=== PATIENT | female | born 1985 | race Caucasian/White ===

== ENCOUNTER → 2016-12-17 | Outpatient (CLI) | payer OTHER ==
[~2016-12-17] MED LIST: BCPILLS PO; CEPH500C2 PO; CHOL1000 PO; DIPH25CA65 PO; EPP3/2 IM; FEXO1TAB49 PO; FLUT0.15 NAE; HYDR-5688 PO; MISCCAP80 PO; SULF800T23 PO; TRAV0.00 OP; [UNRECOGNIZED DRUG - OTHER] PO; [UNRECOGNIZED DRUG - OTHER] PO
[2016-12-17 17:27] LABS: BASO % 0.3 %; BASO ABS # 0.02 K/uL (0-0.2); COMPLETE YES; EOS % 2.9 %; HEMATOCRIT 39.6 % (37-47); IG% 0.2 %; LYMPH ABS # 1.16 K/uL (1.2-3.4); MEAN CELL VOLUME 90.2 fL (80-100); MEAN CORPUSCULAR HEMOGLOBIN 30.5 pg (25-34); MEAN CORPUSCULAR HGB CONC 33.8 g/dl (32-36); MEAN PLATELET VOLUME 11.5 fL (7.4-10.4); MONO % 8.4 %; NEUT % 68.2 %; PLATELET COUNT 267 K/uL (130-400); RED BLOOD COUNT 4.39 M/uL (4.2-5.4); WHITE BLOOD COUNT 5.81 K/uL (4.8-10.8)
[2016-12-17 18:02] LABS: BLOOD UREA NITROGEN 9 mg/dl (7-18); BUN/CREATININE RATIO 11.1 (10-20); CALCIUM 8.5 mg/dl (8.5-10.1); CARBON DIOXIDE 25 mmol/L (21-32); CHLORIDE 106 mmol/L (98-107); CREATININE 0.83 mg/dl (0.60-1.20); GLUCOSE 74 mg/dl (70-99); POTASSIUM 3.9 mmol/L (3.5-5.1); SODIUM 140 mmol/L (136-145)
== END | disposition home or self-care (01) ==
LOC: C.LABBFT 12:47
PROVIDERS: ATTEND Family Medicine
DX: L65.9 Nonscarring hair loss, unspecified (principal)

== ENCOUNTER → 2016-12-19 | Outpatient (CLI) | payer OTHER | END | disposition home or self-care (01) | LOC: C.LABSPEC 12:33 | PROVIDERS: ATTEND Family Medicine | DX: R19.7 Diarrhea, unspecified (principal) ==

== ENCOUNTER → 2017-08-08 | Outpatient (CLI) | payer OTHER ==
[2017-08-08 12:31] LABS: BASO % 0.4 %; BASO ABS # 0.03 K/uL (0-0.2); COMPLETE YES; EOS % 5.1 %; HEMATOCRIT 42.1 % (37-47); IG% 0.1 %; LYMPH % 29.1 %; LYMPH ABS # 1.95 K/uL (1.2-3.4); MEAN CELL VOLUME 92.1 fL (80-100); MEAN CORPUSCULAR HEMOGLOBIN 31.5 pg (25-34); MEAN CORPUSCULAR HGB CONC 34.2 g/dl (32-36); MEAN PLATELET VOLUME 11.2 fL (7.4-10.4); MONO % 9.7 %; NEUT % 55.6 %; PLATELET COUNT 300 K/uL (130-400); RED BLOOD COUNT 4.57 M/uL (4.2-5.4); WHITE BLOOD COUNT 6.69 K/uL (4.8-10.8)
[2017-08-08 12:57] LABS: BLOOD UREA NITROGEN 13 mg/dl (7-18); BUN/CREATININE RATIO 15.4 (10-20); CALCIUM 9.5 mg/dl (8.5-10.1); CARBON DIOXIDE 26 mmol/L (21-32); CHLORIDE 105 mmol/L (98-107); CREATININE 0.82 mg/dl (0.60-1.20); GLUCOSE 90 mg/dl (70-99); POTASSIUM 4.3 mmol/L (3.5-5.1); SODIUM 137 mmol/L (136-145)
== END | disposition home or self-care (01) ==
LOC: C.LABBFT 09:33
PROVIDERS: ATTEND Internal Medicine
DX: Z01.812 Encounter for preprocedural laboratory examination (principal); L05.91 Pilonidal cyst without abscess

== ENCOUNTER 2017-08-14 04:55 | Observation (INO) | payer OTHER ==
[2017-08-08 08:03] VITALS: BMI 36.0
[2017-08-14] VITALS (10 sets, daily range): BP systolic 105–129; BP diastolic 62–83; PULSE 61–77; TEMP 36.6–37; O2SAT 95–97; Ht 177.8 cm; Wt 115.0 kg
[~2017-08-14] VITALS: Ht 177.8 cm; Wt 115.0 kg
[~2017-08-14 04:55] MED LIST changes: -CEPH500C2 PO; -HYDR-5688 PO; -SULF800T23 PO
[2017-08-14] MEDS ORDERED: LACTATED RINGER'S 1000ML 1,000 ML IV SCH (06:00)
[2017-08-14] MEDS ORDERED: CEFAZOLIN 2000 MG/60 ML D5W IV SCH (06:00)
[2017-08-14] MEDS ORDERED: LIDOCAINE HCL 2% 2 ML VIAL (20MG/ML) ONE ×2 (06:07)
[2017-08-14] MEDS ORDERED: PROPOFOL IV EMULSION 10 MG/ML 20 ML VIAL IV ONE ×2 (06:12→07:45)
[2017-08-14] MEDS ORDERED: FENTANYL CITRATE INJ 50 MCG/1 ML 2 ML VIAL ONE (06:13)
[2017-08-14] MEDS ORDERED: MIDAZOLAM HCL 1 MG/ML 2ML VIAL ONE (06:13)
[2017-08-14] MEDS ORDERED: BUPIVACAINE 0.5 % 5 MG/1 ML MPF 30ML VIAL ONE (06:34)
[2017-08-14] MEDS ORDERED: DEXAMETHASONE SOD INJ 4 MG/ML VIAL IV PRN (06:45)
[2017-08-14] MEDS ORDERED: EpHEDrine SULFATE INJ 50 MG/ML AMP IV PRN (06:45)
[2017-08-14] MEDS ORDERED: ACETAMINOPHEN 1000 MG/100 ML IV IV SCH (06:45)
[2017-08-14] MEDS ORDERED: ATROPINE SULFATE 0.1 MG/ML 5ML SYR IV PRN (06:45)
[2017-08-14] MEDS ORDERED: HYDROmorphone INJ 1 MG/ML SYR IV PRN (06:45)
[2017-08-14] MEDS ORDERED: PROMETHAZINE HCL INJ 12.5 MG in SODIUM CHLORIDE 0.9% 50ML 50 ML IV PRN ×2 (06:45→10:15)
[2017-08-14] MEDS ORDERED: PHENYLEPHRINE 100MCG/ML 5ML SYR IV PRN (06:45)
[2017-08-14] MEDS ORDERED: ONDANSETRON INJ 2 MG/ML 2 ML VIAL IV PRN ×2 (06:45→08:00)
[2017-08-14] MEDS ORDERED: FENTANYL CITRATE INJ 50 MCG/1 ML 2 ML VIAL IV PRN (06:45)
--- NOTE | 2017-08-14 06:52 | History & Physical Bridge Note ---
H&P Re-Evaluation Bridge Note: I have examined the patient, reviewed the History & Physical and in the interval since the performance of the History & Physical I have noted the following changes of clinical significance: No changes noted
[2017-08-14] MEDS ORDERED: ONDANSETRON INJ 2 MG/ML 2 ML VIAL ONE (07:28)
[2017-08-14] MEDS ORDERED: ROCURONIUM BROMIDE 10 MG/ML 5 ML VIAL IV ONE (07:28)
[2017-08-14] MEDS ORDERED: SUCCINYLCHOLINE CHLORIDE 20 MG/ML 10 ML VIAL IV ONE (07:28)
[2017-08-14] MEDS ORDERED: DEXAMETHASONE SOD INJ 4 MG/ML VIAL ONE (07:28)
[2017-08-14] MEDS ORDERED: HYDROmorphone INJ 2 MG/ML SYR/VIAL ONE (07:30)
[2017-08-14] MEDS ORDERED: NEOSTIGMINE METHYLSULFATE 5 MG/5 ML SYR ONE (07:51)
[2017-08-14] MEDS ORDERED: GLYCOPYRROLATE INJ 0.2 MG/ML VIAL ONE (07:51)
--- NOTE | 2017-08-14 07:59 | [facility] Operative Report ---
Operative Report Operative Date Aug 14, 2017. Pre-Operative Diagnosis Pilonidal Cyst Post-Operative Diagnosis Pilonidal Cyst Procedure(s) Performed Excision / Drainage of Pilonidal Cyst Surgeon Dr Bliss [employer] Brake Technician Surgeon(s) Sam Jackson PA-C Findings approx 3 cm sinus tract w/ site of prior drainage Anesthesia gen Complication(s) None Disposition Recovery Room / PACU I attest to the content of the Intraoperative Record and any orders documented therein. Any exceptions are noted below.
[2017-08-14] MEDS ORDERED: MoRPHine SULFATE 4 MG/ML 1 ML CARP\\VIAL IV PRN (08:00)
[2017-08-14] MEDS ORDERED: HYDROCODONE/ACETAMOPHEN 5/325MG TAB PO PRN ×2 (08:00)
[2017-08-14] MEDS ORDERED: PROMETHAZINE HCL INJ 25 MG in SODIUM CHLORIDE 0.9% 50ML 50 ML IV PRN (08:00)
[2017-08-14] MEDS ORDERED: MoRPHine SULFATE 2 MG/ML CARP IV PRN (08:00)
[2017-08-14] MEDS ORDERED: IV FLUIDS COMPLETED PRN (08:30)
--- NOTE | 2017-08-14 08:48 | Anesthesiology Progress Note ---
Anesthesia Post Op Note Date & Time Aug 14, 2017 at 08:48 Vital Signs Pain Intensity: 0 Vital Signs Past 12 Hours Date Time Temp Pulse Resp B/P (MAP) Pulse Ox O2 Delivery O2 Flow Rate FiO2 08/14/17 08:35 76 16 130/60 99 Oxymask 5 08/14/17 08:25 77 16 128/69 99 Oxymask 5 08/14/17 08:16 36.0 84 16 146/73 98 Oxymask 10 08/14/17 05:35 36.9 70 18 129/75 (93) 97 Room Air Notes Mental Status: alert / awake / arousable, participated in evaluation Pt Amnestic to Procedure: Yes Nausea / Vomiting: adequately controlled Pain: adequately controlled Airway Patency, RR, SpO2: stable & adequate BP & HR: stable & adequate Hydration State: stable & adequate Anesthetic Complications: no major complications apparent Doing well. Awake, stable, no complaints.
--- NOTE | 2017-08-14 08:54 | OPERATIVE REPORT ---
DATE OF OPERATION: 08/14/2017 PREOPERATIVE DIAGNOSIS: Pilonidal sinus. POSTOPERATIVE DIAGNOSIS: Same. NAME OF OPERATION: Excision and closure of pilonidal sinus. STAFF SURGEON: Dr. Bliss. WIRE WINDER: Wilfredo Jackson PA-C. ANESTHESIA: General. PROCEDURE: The patient was brought in the operating room and placed on the operating table in the prone position after appropriate intubation. Her sacral area was prepped and draped in usual fashion. She had 2 small openings in the sacral crease. These were probed, I did open the skin which was anesthetized prior to this using 0.5% plain Marcaine. The sinus tract did appear to reach cephalad and to the left where she had had a previously draining site. This entire area was excised with skin down to the fascia. The area was very clean. There was no abscess. Deep tissue was reapproximated using 2-0 chromic catgut suture, then the skin reapproximated using interrupted 4-0 Prolene suture. Dressing applied and patient transferred to recovery room in stable condition. I attest to the content of the Intraoperative Record and any orders documented therein. Any exception s are noted below.
[2017-08-14] MEDS ORDERED: BIRTH CONTROL PILLS PO SCH (09:00)
[2017-08-14] MEDS: LACTATED RINGER'S 1000ML 1,000 ML IV SCH (10:19)
[2017-08-14] MEDS: DOCUSATE SODIUM/SENNA 50/8.6MG TAB PO SCH ×2 (11:17→20:31)
[2017-08-14] MEDS: FLUTICASONE PROPIONATE NA SPR 16 GM BTL NAE SCH (14:08)
[2017-08-14] MEDS: KETOROLAC TROMETHAMINE 30 MG/ML VIAL IV. SCH ×2 (14:08→20:31)
[2017-08-14] MEDS ORDERED: CEPH500C2 PO (15:32)
[2017-08-14] MEDS ORDERED: HYDR-5688 PO (15:32)
--- NOTE | 2017-08-14 15:35 | Discharge Instructions ---
Discharge Instructions Date of Service Aug 14, 2017. Admission Reason for Admission: Pilonidal Sinus Discharge Discharge Diagnosis / Problem: pilonidal sinus Discharge Goals Goal(s): Decrease discomfort, Improve function, Improve disease control Activity Recommendations Activity Limitations: as noted below Lifting Limitations: gradually increase as tolerated (light activity for 2 weeks) Exercise/Sports Limitations: until after follow-up appointment May Resume Sexual Activity: when tolerated Shower/Bathe: tomorrow (may shower, don't soak in tub) Driving or Machine Use: resume 1 day after discharge SPECIAL CARE INSTRUCTIONS: * Cover incisions and change daily for comfort/drainage. * May use ibuprofen for pain as tolerated. * Expect some swelling and bruising. Call your doctor if: * Temperature above 101 degrees * Pain not relieved by pain medicine ordered * There is increased drainage or redness from any incision * You have any unanswered questions or concerns [phone]. FOLLOW UP VISIT: If not already scheduled, please call the office for a follow-up visit. for next week- check up OFFICE PHONE NUMBER: Dr. Bliss Office . Current Hospital Diet Patient's current hospital diet: Regular Diet Discharge Diet Recommended Diet: Regular Diet Procedures Procedures Performed: Excision / Drainage of Pilonidal Cyst Pending Studies Studies pending at discharge: no Medical Emergencies . Who to Call and When: Medical Emergencies: If at any time you feel your situation is an emergency, please call 911 immediately. . Non-Emergent Contact Non-Emergency issues call your: Primary Care Provider, Surgeon . "Provider Documentation" section prepared by Evens Bliss. . VTE Core Measure Inpt VTE Proph given/why not?: SCD's
[2017-08-14] MEDS: CEFAZOLIN IV 1,000 MG in DEXTROSE 5% 50ML 50 ML IV SCH (16:07)
[2017-08-14] MEDS ORDERED: NURSING VERBAL MED ORDER ONE (21:00)
[2017-08-14] MEDS ORDERED: ZOLPIDEM TARTRATE 5 MG TAB PO PRN (21:15)
[2017-08-15] MEDS: CEFAZOLIN IV 1,000 MG in DEXTROSE 5% 50ML 50 ML IV SCH ×2 (00:29→07:52)
[2017-08-15] MEDS: KETOROLAC TROMETHAMINE 30 MG/ML VIAL IV. SCH (01:47)
[2017-08-15 03:32] VITALS: BP 111/69; PULSE 55; TEMP 36.7; O2SAT 99
[2017-08-15] MEDS: LACTATED RINGER'S 1000ML 1,000 ML IV SCH (04:11)
--- NOTE | 2017-08-15 07:13 | DISCHARGE SUMMARY ---
PRINCIPAL DIAGNOSIS: Pilonidal sinus. PROCEDURES: The patient underwent excision and closure of pilonidal sinus. HISTORY OF PRESENT ILLNESS: The patient is a 32-year-old female who has been experiencing symptoms of pain and intermittent drainage from a pilonidal sinus for some time and now is brought into the hospital for surgical treatment. HOSPITAL COURSE: The patient was brought into the hospital on 08/14/2017 where she underwent excision and closure of her pilonidal sinus. She did have evidence on inspection initially of drainage at least twice. She did tolerate the procedure well and has done well overnight and is has felt stable for discharge home today to be followed in the surgical clinic next week.
[2017-08-15 07:35] VITALS: BP 120/76; PULSE 55; TEMP 36.9; O2SAT 99
[2017-08-15 10:22] VITALS: BP 120/76; PULSE 55; TEMP 36.9; O2SAT 99
[2017-08-15] MEDS: DOCUSATE SODIUM/SENNA 50/8.6MG TAB PO SCH (10:45)
[2017-08-15] MEDS: FLUTICASONE PROPIONATE NA SPR 16 GM BTL NAE SCH (10:45)
== END 2017-08-15 11:10 | disposition home or self-care (01) ==
LOC: C.ACU 04:55 → C.MSW 08:04 → ENRESERV 08:54 → UNDOADMOB 09:41 → C.MSW 09:41
PROVIDERS: ADMIT Surgery; ATTEND Surgery
DX: L05.91 Pilonidal cyst without abscess (principal); E66.9 Obesity, unspecified; F41.9 Anxiety disorder, unspecified; Z87.891 Personal history of nicotine dependence; Z79.899 Other long term (current) drug therapy

== ENCOUNTER 2020-11-11 04:57 | Inpatient (IN) ==
[2020-11-11] MEDS ORDERED: OXYTOCIN 30 UNITS/500 ML BAG IV PRN ×2 (05:37→10:45)
--- NOTE | 2020-11-11 05:44 | History & Physical Report ---
Date of Service November 11, 2020 Assessment & Plan (1) : (2) Insulin controlled gestational diabetes mellitus (GDM) during : Admit to L&D. EFM/toco. Labs, IV. Rapid covid screen, as test yesterday is still pending. Hourly glucose checks. OK for epidural - patient desires this ERIC. History of Present Illness Chief Complaint: labor Primary Care Provider: Fransisca Rodriguez MD 35yo @ 39 01/22, spontaneous rupture of membranes clear fluid approx 2am. Presented to L&D with regular ctx and very painful. + movement, no vaginal bleeding. +nitrizine per RN. GBS neg. complicated by: Obesity BMI 35 or > at start of -Growth US @ 32 wks EFW 65% @ 32wk, AC 80% - JBS AMA NST's wkly @ 36 wks GDM on insulin (09/29/20) *Wkly NSTs @32wks and Twice wkly @36wks *Serial growth US @28wks *Deliver by EDC; IOL scheduled 11/15 Allergies Allergy/AdvReac Type Severity Reaction Status Date / Time Bactrim Allergy Unknown RASH, Verified 08/14/17 05:27 FLU-LIKE SYMPTOMS, EYES SWELLED SHUT sulfamethoxazole Allergy Unknown RASH, Verified 11/10/20 08:54 FLU-LIKE SYMPTOMS, EYES SWELLED SHUT trimethoprim Allergy Unknown RASH, Verified 11/10/20 08:54 FLU-LIKE SYMPTOMS, EYES SWELLED SHUT Home Medications Medication Instructions Recorded Confirmed Type [id number] fum-folic ac-om3 1 tab PO DAILY 12/28/19 11/10/20 History clindamycin phosphate 1 % lotion 1 appln TOP DAILY #60 ml 01/22/20 11/10/20 Rx lactobacillus combination no.8 3 3,000 mmu cells PO DAILY 08/16/20 11/10/20 History billion cell capsule acetone (urine) test #50 ea 09/15/20 11/10/20 Rx blood sugar diagnostic #150 ea 09/15/20 11/10/20 Rx blood-glucose meter #1 ea 09/15/20 11/10/20 Rx lancets 33 gauge #150 ea 09/15/20 11/10/20 Rx insulin lispro 100 unit/mL 8 unit SUBCUT TID #15 ml 09/23/20 11/10/20 Rx subcutaneous pen pen needle, diabetic 32 gauge x #150 ea 09/23/20 11/10/20 Rx 32" insulin NPH isoph U-100 human 100 See Rx Instructions SUBCUT QPM #30 10/07/20 11/10/20 Rx unit/mL (3 mL) subcutaneous pen ml Claritin 1 tab PO DAILY 11/08/20 11/10/20 History magnesium 1 tab PO DAILY 11/08/20 11/10/20 History Patient History Medical History Abnormal biochemical finding on screening of mother, antepartum Anxiety Chronic sinusitis Encounter for anatomic survey Gestational diabetes mellitus (GDM) affecting , antepartum Glaucoma History of acne History of headache History of sleep disturbance Hx of varicella Infection of finger Insomnia Obesity Pilonidal sinus with 39 completed weeks gestation Sinus congestion Supervision of normal intrauterine in primigravida Suspected rupture of membranes not found for normal first Surgical History History of excision of pilonidal cyst History of hand surgery History of sinus surgery History of wisdom tooth extraction Family History Aunt Breast cancer Mother Breast cancer Anxiety Father Diabetes Grandmother Breast cancer maternal great grandmother Denies family history of Colon cancer Ovarian cancer Prostate cancer Myocardial infarction Social History Smoking Status: Never smoker Age Started Using Tobacco: 16; Age Quit Using Tobacco: 26; Cigarettes Per Day: social smoker; Second Hand Exposure: No; Hx Alcohol Use: No Hx Substance Use: No Preferred Language: Czech Communication Ability: Effective Chemistry Specialist Required: No Beliefs That Will Affect Care: None marital status: marital status details: Vitaliy Bui (37) [phone] Current Living Situation: Parent Current Living Situation Comment: lives with spouse, 1 dog current occupational status: employed current occupation: cafeteria food server Feels Safe at Home: Yes Diet Comment: no special diet followed Dental Care, Regularly: Yes Physical Activity Frequency: 1-2 Times per Week Seatbelt Use: always Do you think of yourself as: straight/heterosexual Review of Systems All systems reviewed & are unremarkable except as noted in HPI & below Physical Exam Physical Exam: cervix 6/100/-1 FHT 150s, min to mod mihai, no accels, no decels Central High Q 2-4 min Constitutional: WD/WN, vitals as above Respiratory: normal respiratory effort, lungs clear to auscultation no respiratory distress Cardiovascular: Rate/Rhythm: regular rate and regular rhythm Gastrointestinal (Abdomen): Inspection/Auscultation: abdomen normal to inspection Percussion/Palpation: abdomen soft; abdomen nontender Gravid. No s/s chorio or abruption. Skin: no rashes, warm and dry Psychiatric: A+Ox3, euthymic affect Results & Data ([facility]) Vital Signs (Past 12 Hours) Vital Signs Pulse BP 11/11/20 05:19 88 126/60 Coding Level of Care Code None Diagnoses Z34.90 Insulin controlled gestational diabetes mellitus (GDM) during O24.414
[2020-11-11] MEDS: LACTATED RINGER'S 1,000 ML IV PRN ×2 (06:00→08:57)
--- NOTE | 2020-11-11 06:06 | Anesthesiology Consultation ---
Date of Service November 11, 2020 Assessment & Plan Chart Review Chart Review: Acceptable Risk for Labor Epidural Consults Requested none History Allergies Allergy/AdvReac Type Severity Reaction Status Date / Time Bactrim Allergy Unknown RASH, Verified 08/14/17 05:27 FLU-LIKE SYMPTOMS, EYES SWELLED SHUT sulfamethoxazole Allergy Unknown RASH, Verified 11/10/20 08:54 FLU-LIKE SYMPTOMS, EYES SWELLED SHUT trimethoprim Allergy Unknown RASH, Verified 11/10/20 08:54 FLU-LIKE SYMPTOMS, EYES SWELLED SHUT Medications Home Medications Medication Instructions Recorded Confirmed Last Taken [id number] fum-folic ac-om3 1 tab PO DAILY 12/28/19 11/10/20 11/08/20 18:30 clindamycin phosphate 1 % lotion 1 appln TOP DAILY #60 ml 01/22/20 11/10/20 Unknown lactobacillus combination no.8 3 3,000 mmu cells PO DAILY 08/16/20 11/10/20 11/08/20 18:30 billion cell capsule acetone (urine) test #50 ea 09/15/20 11/10/20 Unknown blood sugar diagnostic #150 ea 09/15/20 11/10/20 Unknown blood-glucose meter #1 ea 09/15/20 11/10/20 Unknown lancets 33 gauge #150 ea 09/15/20 11/10/20 Unknown insulin lispro 100 unit/mL 8 unit SUBCUT TID #15 ml 09/23/20 11/10/20 11/08/20 18:30 subcutaneous pen pen needle, diabetic 32 gauge x #150 ea 09/23/20 11/10/20 Unknown 5/32" insulin NPH isoph U-100 human 100 See Rx Instructions SUBCUT QPM #30 10/07/20 11/10/20 11/07/20 23:00 unit/mL (3 mL) subcutaneous pen ml Claritin 1 tab PO DAILY 11/08/20 11/10/20 11/08/20 08:00 magnesium 1 tab PO DAILY 11/08/20 11/10/20 11/08/20 18:30 Past Medical History Medical History Abnormal biochemical finding on screening of mother, antepartum Anxiety Chronic sinusitis Encounter for anatomic survey Gestational diabetes mellitus (GDM) affecting , antepartum Glaucoma History of acne History of headache History of sleep disturbance Hx of varicella Infection of finger Insomnia Obesity Pilonidal sinus with 39 completed weeks gestation Sinus congestion Supervision of normal intrauterine in primigravida Suspected rupture of membranes not found for normal first Past Family History Family History Aunt Breast cancer Mother Breast cancer Anxiety Father Diabetes Grandmother Breast cancer maternal great grandmother Denies family history of Colon cancer Ovarian cancer Prostate cancer Myocardial infarction Past Surgical History Surgical History History of excision of pilonidal cyst History of hand surgery History of sinus surgery History of wisdom tooth extraction Social History Smoking Status: Never smoker tobacco type: cigarettes Smoking cigarettes per day: social smoker Hx Alcohol Use: No Hx Substance Use: No Physical Exam Vital Signs Last Vital Signs Pulse 88 11/11/20 05:19 BP 126/60 11/11/20 05:19
[2020-11-11] MEDS ORDERED: fentaNYL 2MCG/ML ROPIVACAINE 1.25MG/ML 100 ML BAG EPI PRN (06:07)
[2020-11-11] MEDS ORDERED: NALOXONE HCL 1 MG in SODIUM CHLORIDE 0.9% 1000ML 1,000 ML IV PRN (06:07)
[2020-11-11] MEDS ORDERED: ePHEDrine sulfate 50 MG/ML AMP IV PRN (06:07)
[2020-11-11] MEDS ORDERED: NALOXONE HCL 0.4 MG/1 ML VIAL/CARP IV PRN (06:07)
[2020-11-11] MEDS ORDERED: diphenhydrAMINE 50 MG/ML VIAL IV PRN (06:07)
[2020-11-11] MEDS ORDERED: ePHEDrine sulfate 50 MG/ML AMP ONE (06:13)
[2020-11-11] MEDS ORDERED: fentaNYL 2MCG/ML ROPIVACAINE 1.25MG/ML 100 ML BAG EPI ONE (06:13)
[2020-11-11] MEDS ORDERED: fentaNYL citrate 100 MCG/2 ML VIAL ONE (06:13)
[2020-11-11] MEDS ORDERED: BUPIVACAINE 0.25% 30 ML VIAL ONE (06:13)
[2020-11-11] MEDS ORDERED: SODIUM CHLORIDE 0.9% INJ 10 ML VIAL ONE (06:13)
[2020-11-11 06:15] LABS: Hematocrit (blood only) 39.7 % (37-47); Hemoglobin 13.5 g/dL (12.0-16.0); Mean Corpuscular Hemoglobin 29.9 pg (25-34); Mean Corpuscular Volume 87.8 fL (80-100); Mean Platelet Volume 11.4 fL (7.4-10.4); Platelet Count 247 K/uL (130-400); RDW Coefficient of Variation 14.2 % (11.5-14.5); RDW Standard Deviation 45.4 fL (36.4-46.3); Red Blood Count 4.52 M/uL (4.2-5.4); White Blood Count 11.87 K/uL (4.8-10.8)
--- NOTE | 2020-11-11 07:50 | Labor Progress Brief Note ---
Date of Service November 11, 2020 Subjective Comfortable with epidural, no urge to push. FHT Cat 1 [place] Q 1-2 SVE rim/100/+1 Anticipate . Assessment & Plan Admission and Anticipated Discharge Date Admission Date: November 11, 2020 Results & Data ([facility]) Vital Signs (Past 12 Hours) Vital Signs Temp Pulse Resp BP Pulse Ox 11/11/20 07:41 86 94 11/11/20 07:36 77 132/72 93 11/11/20 07:31 80 93 11/11/20 07:26 69 94 11/11/20 07:23 73 197/82 H 94 11/11/20 07:21 79 94 11/11/20 07:16 80 94 11/11/20 07:14 73 94 11/11/20 07:11 79 95 11/11/20 07:09 75 94 11/11/20 07:07 76 134/72 11/11/20 07:06 78 94 11/11/20 07:03 78 94 11/11/20 07:01 78 94 11/11/20 06:58 72 94 11/11/20 06:56 72 94 11/11/20 06:52 80 91 11/11/20 06:51 77 94 11/11/20 06:48 80 138/67 11/11/20 06:46 82 96 11/11/20 06:45 77 139/73 11/11/20 06:41 79 140/71 96 11/11/20 06:39 93 H 92 11/11/20 06:36 90 97 11/11/20 06:35 120/88 11/11/20 06:31 92 H 96 11/11/20 06:26 83 100 11/11/20 06:22 77 93 11/11/20 06:21 91 H 98 11/11/20 06:16 75 100 11/11/20 05:58 36.7 C 18 11/11/20 05:19 88 126/60 Coding Level of Care Code None
[2020-11-11] MEDS ORDERED: SODIUM CHLORIDE 0.9% 1000ML 1,000 ML IV PRN (07:52)
[2020-11-11] MEDS ORDERED: INSULIN REGULAR 250 UNITS in SODIUM CHLORIDE 0.9% 247.5 ML IV PRN (07:52)
[2020-11-11] MEDS ORDERED: DEXTROSE 5% 1,000 ML IV PRN (07:52)
[2020-11-11] MEDS ORDERED: DEXTROSE 50% 50 ML SYRINGE IV PRN (07:52)
[2020-11-11] MEDS ORDERED: IBUPROFEN 600 MG TAB PO PRN (10:26)
--- NOTE | 2020-11-11 10:29 | Delivery Summary ---
Vaginal Delivery Summary Date of Service November 11, 2020 Vaginal Delivery Summary Findings: Viable female with Apgars of 8 and 9. Baby delivered over a midline episiotomy. Cord gases and cord blood samples obtained. Placenta delivered spontaneously and sent for pathological evaluation. Episiotomy repaired with 4-0 and 2-0 Vicryl in a routine fashion. Estimated blood loss 300 cc. Labor note: The patient is a 35-year-old 1 para 0 with an EDC of 15 November at 39+ weeks gestational age who presents to labor and delivery with spontaneous rupture membranes. Patient states membranes ruptured at approximately 0200 hrs. on day of admission. Subsequent onset of contractions. Patient's course remarkable for gestational diabetes insulin-dependent. The patient's abdominal circumference was greater than the 80th percentile at 32 weeks and insulin was initiated. She was followed per protocol. Laboratory values for the show blood type of B+, antibody negative, rubella immune, hepatitis B negative, she had a negative cell free DNA screen, and a negative third trimester beta strep culture. Upon admission the patient had gross rupture of membranes with cervical dilatation of 6 cm. Anesthesia was consulted and an epidural was placed. Bedside glucoses were checked which remained in the 1 20-1 40 range. Patient progressed to full dilatation and began her second stage. She pushed for appr oximately 1 hour delivering the viable female . Cord was clamped and cut. Cord gases and cord blood samples were obtained. Placenta was delivered spontaneously and sent for pathological evaluation. Midline episiotomy was repaired with 4-0 and 2-0 Vicryl. Estimated blood loss was 300 cc. Sponge and needle count was correct. [facility] Vaginal Delivery Charge Vaginal Delivery Codes: 67327 global code for the antepartum, delivery, and post-
[2020-11-11 10:33] LABS: Base Excess Cord Arterial Bld -4.6 mEq/L (-9-1.8); CO2 Cord Arterial Blood 72 mmHg (39.1-73.5); HCO3 Cord Arterial Blood 26 mmol/L (19.7-28.5); PO2 Cord Arterial Blood 21 mmHg (4.1-31.7); pH Cord Arterial Blood 7.17 (7.1-7.38)
[2020-11-11 10:36] LABS: Oxygen Sat Cord Arterial Blood < 60.0 % (<60)
[2020-11-11 10:37] LABS: Base Excess Cord Venous Blood -2.7 mEq/L (-7.7-1.9); Cord Venous Blood HCO3 24 mmol/L (18.4-26.8); Cord Venous Blood PCO2 50 mmHg (30.4-57.2); Cord Venous Blood PO2 24 mmHg (14.1-43.3)
[2020-11-11 10:38] LABS: O2 Saturation Cord Venous Bld < 60.0 % (<68)
[2020-11-11] MEDS ORDERED: BENZOCAINE 20% AER SPR 82.5 GM CAN EXT PRN (10:45)
[2020-11-11] MEDS ORDERED: DIPHTHERIA/TETANUS/PERTUSSIS 0.5 ML SYR/VIAL IM ONE (10:45)
[2020-11-11] MEDS ORDERED: ACETAMINOPHEN 325 MG TAB PO PRN ×2 (10:45→16:33)
[2020-11-11] MEDS ORDERED: SUPERCREAM 0.870% 15 GM JAR EXT PRN ×2 (10:45→16:33)
[2020-11-11] MEDS ORDERED: ACETAMINOPHEN W/CODEINE #3 1 TAB PO PRN (10:45)
[2020-11-11] MEDS ORDERED: HYDROCORTISONE ACETATE 25 MG SUPP PR PRN (10:45)
--- NOTE | 2020-11-11 12:22 | Anesthesia Procedure Note ---
Date of Service November 11, 2020 Anesthesia Post Epidural Note Vital Signs Vital Signs: Temp Pulse Resp BP Pulse Ox 36.6 C 90 18 166/94 H 91 11/11/20 11:05 11/11/20 11:50 11/11/20 11:05 11/11/20 11:50 11/11/20 09:11 Notes Mental Status: alert / awake / arousable Nausea / Vomiting: adequately controlled Pain: adequately controlled Airway Patency, RR, SpO2: stable & adequate BP & HR: stable & adequate Hydration State: stable & adequate Neuraxial Anesthesia: was administered and sensory block is resolving Anesthetic Complications: no major complications apparent Epidural: Removed without complications and With tip intact
[2020-11-11 16:13] LABS: Hematocrit (blood only) 35.9 % (37-47); Hemoglobin 11.9 g/dL (12.0-16.0); Mean Corpuscular Hemoglobin 29.2 pg (25-34); Mean Corpuscular Hgb Conc 33.1 g/dL (32-36); Mean Platelet Volume 11.5 fL (7.4-10.4); Platelet Count 222 K/uL (130-400); RDW Coefficient of Variation 14.2 % (11.5-14.5); Red Blood Count 4.08 M/uL (4.2-5.4); White Blood Count 13.98 K/uL (4.8-10.8)
[2020-11-11 16:47] LABS: Bilirubin Direct 0.1 mg/dl (0-0.2); Bilirubin,Total 0.4 mg/dl (0.2-1); Creatinine Clr Calc Pharmacy 144.5 ml/min; Est GFR (African American) 104.4; Total Protein 6.1 gm/dl (6.4-8.2); Uric Acid 6.6 mg/dl (2.6-7.2)
[2020-11-11] MEDS: DOCUSATE SODIUM 100 MG CAP PO SCH (20:55)
[2020-11-12] MEDS: IBUPROFEN 600 MG TAB PO PRN ×2 (00:14→09:30)
--- NOTE | 2020-11-12 04:37 | Obstetrical Progress Note ---
Date of Service <Gianluca Yee MD - Last Filed: 11/12/20 07:10> November 12, 2020 Assessment & Plan <Gianluca Yee MD - Last Filed: 11/12/20 07:10> (1) state: 35 y/o s/p at 39w3d on 11/11/20, PPD1. B+. Rubella immune. Stable. Advanced maternal age. insulin-controlled GDM during - normotensive overnight. 127/78 most recent. Has had a few sporadic elevated BPs since delivery, 140s/80s-90s yesterday afternoon. - no flatus, but otherwise meeting milestones. + bowel sounds. Ambulating, eating, voiding - - continue routine care - tentative dispo today vs tomorrow (2) Insulin controlled gestational diabetes mellitus (GDM) during : - per patient, during , was on short acting insulin 12u AM, 8u lunch, 8u dinner. 160u long acting insulin. - off of insulin after delivery. denies symptom complaints. no nausea, vomiting, dizziness. - check blood sugars at home Subjective <Gianluca Yee MD - Last Filed: 11/12/20 07:10> Ambulation: ambulating normally Voiding: no voiding problems Passing Gas:: No Diet Tolerance:: regular diet Lochia:: Small Feeding Type:: breast feeding (latching is brief) Current Pain Level(1-10): 3 Patient is doing pretty well. Current pain level 2-3/10. No BM and denies flatus. She is fine with dispo home either today or tomorrow. Denies hx of blood pressure issues during . Denies recent headache, dizziness, blurry vision, abd pain. Review of Systems Denies fever, chills, sweats Denies shortness of breath, chest pain, palpitations. Denies breast pain. Denies dysuria. Denies headache or changes in vision. Denies nausea/vomiting. Denies focal weakness. + mild intermittent numbness/tingling at hands, not new for her, has had since late . No numbness/tingling of lower extremities. Physical Exam <Gianluca Yee MD - Last Filed: 11/12/20 07:10> General: Alert, oriented. No acute distress. Cardiac: Regular rate and rhythm, no murmurs/rubs/gallops. Respiratory: Clear to auscultation bilaterally, no wheezes/rales/rhonchi. No respiratory distress. Abdomen: , soft, nontender. + bowel sounds. Uterus: Uterine fundus firm, at level of umbilicus. Lower Extremities: No lower extremity edema or swelling. No deep calf pain. Thomas's negative bilaterally. Results & Data ([facility]) <Gianluca Yee MD - Last Filed: 11/12/20 07:10> Vital Signs (Past 12 Hours) Vital Signs Temp Pulse Resp BP 11/11/20 23:10 37 C 82 18 127/70 11/11/20 19:55 36.7 C 78 18 142/81 H 11/11/20 17:59 36.7 C 84 18 123/75 Medications Administered <Mayank Newman Jr, MD, FACOG - Last Filed: 11/12/20 07:39> Co-Signing Physician Notes Resident Physician Supervision Note: I was present with Dr. Yee during the history and exam. I discussed the case with the resident and agree with the findings and plan as documented in the note. Any exceptions or clarifications are listed here: Some elevated BP's immediately , trending downward. PIH labs WNL. Continue to observe, routine pp care Documented By: Mayank Newman Jr, MD, FACOG Resident Activity Tracking <Gianluca Yee MD - Last Filed: 11/12/20 07:10> Resident Involvement: Resident Care Provided Care Provided: OB Delivery
[2020-11-12] MEDS: DOCUSATE SODIUM 100 MG CAP PO SCH (07:57)
[2020-11-12] MEDS ORDERED: FERROUS SULFATE 325 MG TAB PO SCH (08:00)
[2020-11-12] MEDS ORDERED: PRENATAL VITAMIN 1 TAB PO SCH (08:00)
--- NOTE | 2020-11-12 11:01 | Communication Note ---
Date of Service: November 12, 2020 On-call MD received a phone call from Martita MARQUEZ regarding this patient's request to be discharged home. Notes reviewed; patient was to stay this morning for BP monitoring, and "tentative" discharge today vs tomorrow per Dr. Newman's note at rounds today. Last few blood pressures have been normal, and per nurse there are no concerning signs or symptoms seen at this time. Patient is asking to go home. Will place discharge order.
[2020-11-12] MEDS ORDERED: bisacodyL 5 MG TABEC PO SCH (20:00)
== END 2020-11-12 13:00 | disposition home or self-care (01) | DRG 807 ==
LOC: OPB 04:57 → 4S1 05:01 → 4S2 13:03